=== PATIENT | female | born 1985 ===

== ENCOUNTER 2018-06-01 18:51 | Emergency (ER) | payer SELFPAY ==
[2018-06-01 18:58] VITALS: BP 132/87; PULSE 82; TEMP 98; O2SAT 100
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
[2018-06-01 21:42] VITALS: RESP 20
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
== END 2018-06-01 21:42 | disposition home or self-care (01) ==
LOC: C.ER 18:51
DX: S30.0XXA Contusion of lower back and pelvis, initial encounter (principal); V09.9XXA Pedestrian injured in unspecified transport accident, initial encounter; Y92.410 Unspecified street and highway as the place of occurrence of the external cause; M54.5 Low back pain